=== PATIENT | female | born 1995 | race African-American/Black ===

== ENCOUNTER 2018-06-01 23:23 | Emergency (ER) | payer OTHER ==
[~2018-06-01] VITALS: Ht 157.5 cm; Wt 52.2 kg
[2018-06-02 00:39] VITALS: BP 120/76
== END 2018-06-02 00:39 | disposition home or self-care (01) ==
LOC: ER 23:23
DX: S61.012A Laceration without foreign body of left thumb without damage to nail, initial encounter (principal); Y04.0XXA Assault by unarmed brawl or fight, initial encounter; Y92.89 Other specified places as the place of occurrence of the external cause; Y93.89 Activity, other specified; Y99.8 Other external cause status

== ENCOUNTER 2018-06-13 16:56 | Emergency (ER) | payer OTHER ==
[~2018-06-13] VITALS: Ht 157.5 cm; Wt 52.2 kg
== END 2018-06-13 17:54 | disposition home or self-care (01) ==
LOC: ER 16:56
DX: N91.2 Amenorrhea, unspecified (principal)